=== PATIENT | female | born 1950 | race Caucasian/White ===

== ENCOUNTER 2017-12-24 04:53 | Inpatient (IN) | payer OTHER, MEDICARE ==
[2017-12-18 14:14] VITALS: BMI 45.0
--- NOTE | 2017-12-18 15:19 | PAT Medication Instructions ---
Service Date December 18, 2017. Current Home Medication List Aspirin (Aspirin Ec), 81 MG PO HS Cyanocobalamin (B12), 1 TAB PO QDL Fish Oil (Nemacolin-3), 1-2 CAP PO QDD Furosemide (Lasix), 20 MG PO QDL Gabapentin (Neurontin), 300 MG PO BID Wgkbcllqiig-Zbteztrjqlm-Yrq C- (Glucosamine Chondroitin), 1 CAP PO BID Levothyroxine Sodium (Levothyroxine Sodium), 1 TAB PO QAM Losartan Potassium (Cozaar), 100 MG PO QAM Metformin Hcl (Glucophage), 500 MG PO BID Multivitamin (Multivitamin), 1 TAB PO QDD Niacin (Niacin), 500 MG PO QDL Pediatric Multiple Vitamin W/ (Childrens Chewable Multiv), 1 TAB PO DAILY Rosuvastatin Calcium (Rosuvastatin Calcium), 0.5 TAB PO QDL Tramadol (Ultram), 50 MG PO Q8 PRN for Pain Medication Instructions For Your Scheduled Surgery - Hold the following medications starting today: Fish Oil (Nemacolin-3), 1-2 CAP PO QDD Knftdblmwwr-Hkevmorbbgc-Cgs C- (Glucosamine Chondroitin), 1 CAP PO BID - Hold the following medications the morning of surgery: Losartan Potassium (Cozaar), 100 MG PO QAM Metformin Hcl (Glucophage), 500 MG PO BID - Take the following medications the morning of surgery with a sip of water: Gabapentin (Neurontin), 300 MG PO BID Levothyroxine Sodium (Levothyroxine Sodium), 1 TAB PO QAM Tramadol (Ultram), 50 MG PO Q8 PRN for Pain (if needed, can be taken up to four hours before surgery) - Take the following medications as scheduled the afternoon/night before surgery : Aspirin (Aspirin Ec), 81 MG PO HS Cyanocobalamin (B12), 1 TAB PO QDL Furosemide (Lasix), 20 MG PO QDL Gabapentin (Neurontin), 300 MG PO BID Metformin Hcl (Glucophage), 500 MG PO BID Multivitamin (Multivitamin), 1 TAB PO QDD Niacin (Niacin), 500 MG PO QDL Pediatric Multiple Vitamin W/ (Childrens Chewable Multiv), 1 TAB PO DAILY Rosuvastatin Calcium (Rosuvastatin Calcium), 0.5 TAB PO QDL Tramadol (Ultram), 50 MG PO Q8 PRN for Pain (if needed) If you have any questions please call us at [phone] or [phone] or [phone]
[2017-12-18 15:34] LABS: BASO % 0.3 %; BASO ABS # 0.03 K/uL (0-0.2); EOS % 1.6 %; EOS ABS # 0.15 K/uL (0-0.5); HEMATOCRIT 37.1 % (37-47); HEMOGLOBIN 12.6 g/dL (12.0-16.0); IG# 0.03 K/uL (0.00-0.02); LYMPH % 39.7 %; LYMPH ABS # 3.63 K/uL (1.2-3.4); MEAN CORPUSCULAR HEMOGLOBIN 30.2 pg (25-34); MEAN PLATELET VOLUME 9.3 fL (7.4-10.4); MONO % 7.3 %; MONO ABS # 0.67 K/uL (0.11-0.59); NEUT % 50.8 %; NEUT ABS # 4.64 K/uL (1.4-6.5); PLATELET COUNT 241 K/uL (130-400); RED CELL DISTRIBUTION WIDTH CV 13.3 % (11.5-14.5); RED CELL DISTRIBUTION WIDTH SD 43.1 fL (36.4-46.3); WHITE BLOOD COUNT 9.15 K/uL (4.8-10.8)
[2017-12-18 15:46] LABS: PTT PATIENT 25.8 SECONDS (21.0-31.0)
[2017-12-18 15:54] LABS: ALBUMIN 3.6 gm/dl (3.4-5.0); CREATININE 0.78 mg/dl (0.60-1.20); POTASSIUM 3.6 mmol/L (3.5-5.1)
[2017-12-19 06:04] LABS: HEMOGLOBIN A1C 6.7 % (4.5-5.6)
--- NOTE | 2017-12-23 19:31 | HISTORY & PHYSICAL EXAMINATION ---
DATE OF ADMISSION: 12/24/2017 Admission History and Physical. CHIEF COMPLAINT: Chronic right knee pain. HISTORY OF PRESENT ILLNESS: This is a 67-year-old female patient of Dr. Greenwood'eva complaining of chronic right knee pain and instability, longstanding, now progressively getting worse. Patient has failed conservative treatment including intraarticular injections, anti-inflammatories and the use of a cane. Patient has increased pain with weightbearing activities and her pain does interfere with her activities of daily living. PAST MEDICAL HISTORY: Hypertension, hypercholesterolemia, sleep apnea with the use of CPAP, anxiety, carpal tunnel, diabetes mellitus, hypothyroidism, osteoarthritis, degenerative disc disease in her back, sciatica, acid reflux, obesity and partials orally. SOCIAL HISTORY: Nonsmoker, nondrinker. PAST SURGICAL HISTORY: Oral surgeries and tubal ligation. FAMILY HISTORY: Noncontributory. REVIEW OF SYSTEMS: Patient complains of chronic right knee pain and instability. Otherwise denies any shortness of breath, chest pain, nausea, vomiting or any other joint complaints. MEDICATIONS: Levothyroxine 88 mcg daily, losartan 100 mg daily, furosemide 20 mg 1 tablet b.i.d., metformin 500 mg 1 tablet b.i.d., gabapentin 300 mg 1 tablet 3 times daily, tramadol 50 mg every 6 hours as needed, multivitamin daily, glucosamine 500 mg daily, niacin 500 mg t.i.d. She takes B12 plus vitamin, aspirin 81 mg daily, Synthroid 75 mcg, Benicar 40 mg daily, Lasix 20 mg daily, multivitamin daily, Osteo Bi-Flex daily, Celebrex 200 mg daily. ALLERGIES: No known drug allergies. PHYSICAL EXAMINATION: GENERAL: Well-developed, well-nourished 67-year-old female in no acute distress. She is alert and oriented x3 and pleasant. HEENT: Normocephalic, atraumatic. Extraocular motions are intact. Pupils are equal and reactive to light. HEART: Regular rate and rhythm. No murmurs are appreciated. LUNGS: Clear. ABDOMEN: Soft, nontender, bowel sounds are present. EXTREMITIES: Right knee reveals negative 10-95 degrees of range of motion with a valgus deformity. Knee is stable. 4/5 strength. Neurologically and neurovascularly intact in her right lower extremity. DIAGNOSES: Right knee end-stage osteoarthritis, hypertension, hypercholesterolemia, sleep apnea with the use of CPAP, anxiety, carpal tunnel, diabetes mellitus, hypothyroidism, osteoarthritis, degenerative disc disease, sciatica, acid reflux, obesity and oral surgeries with the partial. PLAN: Patient was advised of her diagnoses. Indications, risks, benefits, postop course have all been reviewed. Patient wished to proceed with a right total knee arthroplasty. Necessary consent forms, preoperative testing and clearances will be obtained.
[2017-12-24] VITALS (10 sets, daily range): BP systolic 104–175; BP diastolic 60–84; PULSE 72–84; TEMP 36.2–37.3; O2SAT 91–98; Ht 172.7 cm; Wt 134.1 kg
[~2017-12-24] VITALS: Ht 172.7 cm; Wt 134.1 kg
[~2017-12-24 04:53] MED LIST: ASPI81TA28 PO; CYAN100073 PO; FURO-85 PO; GABA-113 PO; GLC/500 PO; GLUC1CAP35 PO; LEVO88TA3 PO; LOSA1TAB38 PO; MULT-506 PO; NIAC500T11 PO; OMEG10007 PO; PEDI-61 PO; ROSU20TA33 PO; TRAM-10 PO
[2017-12-24] MEDS ORDERED: ROPIVACAINE 5MG/ML 30 ML 150 MG, BUPIVACAINE 0.5% MPF INJ 30 ML, EpINEphrine HCL INJ 0.... INFIL SCH ×7 (06:00)
[2017-12-24] MEDS ORDERED: CEFAZOLIN 3000MG IV PUSH 22.5 ML IV SCH (06:00)
[2017-12-24] MEDS ORDERED: GABAPENTIN 300 MG CAP PO SCH (06:00)
[2017-12-24] MEDS ORDERED: CeleBREX 200 MG CAP PO SCH (06:00)
[2017-12-24] MEDS ORDERED: LACTATED RINGER'S 1000ML 1,000 ML IV SCH (06:00)
[2017-12-24] MEDS ORDERED: METOCLOPRAMIDE HCL 10 MG TAB PO SCH (06:00)
[2017-12-24] MEDS ORDERED: ACETAMINOPHEN 500 MG TAB PO SCH (06:00)
[2017-12-24] MEDS ORDERED: FAMOTIDINE 20 MG TAB PO SCH (06:00)
[2017-12-24] MEDS ORDERED: FENTANYL CITRATE INJ 50 MCG/1 ML 2 ML VIAL ONE (06:28)
[2017-12-24] MEDS ORDERED: MIDAZOLAM HCL 1 MG/ML 2ML VIAL ONE (06:28)
[2017-12-24] MEDS ORDERED: BUPIVACAINE 0.5 % 5 MG/1 ML PF 10ML VIAL ONE (06:37)
[2017-12-24] MEDS ORDERED: POVIDONE-IODINE OP SOLN 30 ML BTL ONE (06:41)
[2017-12-24] MEDS ORDERED: ORTHO JOINT ANESTHETIC ONE (06:41)
[2017-12-24] MEDS ORDERED: BACITRACIN 50000 UNIT VIAL ONE (06:41)
[2017-12-24] MEDS: TRANEXAMIC ACID INJ 1,000 MG x 2 Bags IV SCH ×4 (06:55→10:58)
--- NOTE | 2017-12-24 06:56 | History & Physical Bridge Note ---
H&P Re-Evaluation Bridge Note: I have examined the patient, reviewed the History & Physical and in the interval since the performance of the History & Physical I have noted the following changes of clinical significance: No changes noted
[2017-12-24] MEDS ORDERED: FENTANYL CITRATE INJ 50 MCG/1 ML 2 ML VIAL IV PRN (07:00)
[2017-12-24] MEDS ORDERED: ATROPINE SULFATE 0.1 MG/ML 5ML SYR IV PRN (07:00)
[2017-12-24] MEDS ORDERED: EpHEDrine SULFATE INJ 50 MG/ML AMP IV PRN (07:00)
[2017-12-24] MEDS ORDERED: HYDROmorphone INJ 1 MG/ML SYR IV PRN (07:00)
[2017-12-24] MEDS ORDERED: ONDANSETRON INJ 2 MG/ML 2 ML VIAL IV PRN ×2 (07:00→09:45)
[2017-12-24] MEDS ORDERED: LIDOCAINE HCL 2% 2 ML VIAL (20MG/ML) ONE (08:03)
[2017-12-24] MEDS ORDERED: ONDANSETRON INJ 2 MG/ML 2 ML VIAL ONE (08:03)
[2017-12-24] MEDS ORDERED: PROPOFOL IV EMULSION 10 MG/ML 20 ML VIAL ONE (08:03)
[2017-12-24] MEDS ORDERED: EpHEDrine SULFATE 50MG/5ML SYR ONE (08:11)
--- NOTE | 2017-12-24 09:01 | [facility] Post Operative Brief Note ---
Immediate Operative Summary Operative Date December 24, 2017. Pre-Operative Diagnosis Right Knee End-Stage Osteoarthritis,morbid obesity BMI 45 Post-Operative Diagnosis Same as preoperative Procedure(s) Performed Right Total Knee Arthroplasty, Cemented,increased difficulty morbid obesity,superficial wound vac application Surgeon Dr. Evelio Greenwood Manager Field Investigations Surgeon(s) Devon Michel PA-C Estimated Blood Loss 10ml Findings Consistent with Post-Op Diagnosis Specimens A.) Right Knee Bone and Tissue Drains 2 hemovac Anesthesia Type MAC Spinal Regional Complication(s) none Disposition Disposition: Recovery Room / PACU
[2017-12-24] MEDS ORDERED: METOCLOPRAMIDE HCL INJ 5 MG/ML 2 ML VIAL IV PRN (09:45)
[2017-12-24] MEDS ORDERED: CEFAZOLIN IV 2,000 MG in DEXTROSE 5% 50ML 50 ML IV SCH (09:45)
[2017-12-24] MEDS ORDERED: SOD PHOSPHATE/SOD BIPHOSPHATE ENEMA 132 ML BTL PR PRN (09:45)
[2017-12-24] MEDS ORDERED: ZOLPIDEM TARTRATE 5 MG TAB PO PRN (09:45)
[2017-12-24] MEDS ORDERED: TRAMADOL HCL 50 MG TAB PO PRN (09:45)
[2017-12-24] MEDS ORDERED: BISACODYL 10 MG SUPP PR PRN (09:45)
--- NOTE | 2017-12-24 09:55 | DIAGNOSTIC IMAGING REPORT ---
R KNEE 1 OR 2 VIEWS ROUTINE CLINICAL HISTORY: AP/LATERAL IN PACU RIGHT KNEE pain COMPARISON: None. DISCUSSION: Anatomic alignment posttotal right knee arthroplasty. Good contact between prosthetic and underlying bone. IMPRESSION: Anatomic alignment posttotal right knee arthroplasty. The above report was generated using voice recognition software. It may contain grammatical, syntax or spelling errors. Electronically signed by: Devon Garcia M.D. 12/24/2017 9:54 AM Dictated Date/Time: 12/24/2017 9:53 AM
--- NOTE | 2017-12-24 10:37 | Anesthesiology Progress Note ---
Anesthesia Post Op Note Date & Time December 24, 2017 at 10:36 Vital Signs Pain Intensity: 0 Vital Signs Past 12 Hours Date Time Temp Pulse Resp B/P (MAP) Pulse Ox O2 Delivery O2 Flow Rate FiO2 12/24/17 10:15 36.4 65 19 107/54 96 Nasal Cannula 2 12/24/17 10:05 62 11 110/57 95 Nasal Cannula 2 12/24/17 09:55 81 21 119/63 100 Oxymask 10 12/24/17 09:45 63 16 110/59 100 Oxymask 10 12/24/17 09:35 36.6 73 16 114/62 96 Oxymask 10 12/24/17 05:35 36.7 83 20 175/78 96 Room Air Notes Mental Status: alert / awake / arousable, participated in evaluation Pt Amnestic to Procedure: Yes Nausea / Vomiting: adequately controlled Pain: adequately controlled Airway Patency, RR, SpO2: stable & adequate BP & HR: stable & adequate Hydration State: stable & adequate Neuraxial Anesthesia: was administered, sensory block is resolving Anesthetic Complications: no major complications apparent The patient is doing well in recovery with no complaints. She will be transferred to the floor on continuous pulse oximetry due to her history of LORIE.
[2017-12-24] MEDS ORDERED: GLUCOSE 10 TABS/TUBE PO PRN (11:30)
[2017-12-24] MEDS ORDERED: GLUCAGON FOR INJ 1 MG VIAL IM PRN (11:30)
[2017-12-24] MEDS ORDERED: DEXTROSE 50% 50 ML SYR IV PRN (11:30)
[2017-12-24] MEDS ORDERED: GLUCOSE 40% GEL 15 GM TUBE PO PRN (11:30)
[2017-12-24] MEDS ORDERED: CARBOHYDRATES FOR HYPOGLYCEMIA PO PRN (11:30)
[2017-12-24] MEDS: SODIUM CHLORIDE 0.9% 1000ML 1,000 ML IV SCH ×2 (11:48→20:45)
[2017-12-24 12:02] LABS: HEMATOCRIT 33.2 % (37-47); HEMOGLOBIN 11.1 g/dL (12.0-16.0); MEAN CELL VOLUME 87.8 fL (80-100); MEAN CORPUSCULAR HEMOGLOBIN 29.4 pg (25-34); MEAN PLATELET VOLUME 8.5 fL (7.4-10.4); PLATELET COUNT 184 K/uL (130-400); RED CELL DISTRIBUTION WIDTH CV 13.3 % (11.5-14.5); RED CELL DISTRIBUTION WIDTH SD 42.8 fL (36.4-46.3); WHITE BLOOD COUNT 7.07 K/uL (4.8-10.8)
[2017-12-24 12:20] LABS: MEAN CORPUSCULAR HGB CONC 33.4 g/dl (32-36)
[2017-12-24 12:25] LABS: TOTAL PROTEIN 6.2 gm/dl (6.4-8.2)
[2017-12-24] MEDS ORDERED: NIACIN 500 MG TAB IMMEDIATE RELEASE PO SCH (12:30)
[2017-12-24] MEDS: OXYCODONE HCL IR 5 MG TAB (IMMEDIATE RELEASE) PO PRN (13:49)
[2017-12-24] MEDS: ACETAMINOPHEN 500 MG TAB PO SCH ×2 (14:12→20:00)
[2017-12-24] MEDS: ROSUVASTATIN CALCIUM 20 MG TAB PO SCH (14:12)
[2017-12-24] MEDS: FUROSEMIDE 20 MG TAB PO SCH (14:12)
[2017-12-24] MEDS: CYANOCOBALAMIN 500 MCG TAB (VIT B-12) PO SCH (14:12)
[2017-12-24] MEDS: CEFAZOLIN IV 2,000 MG in SYRINGE 0 ML IV SCH ×2 (14:17→22:31)
[2017-12-24] MEDS: INSULIN ASPART 100 UNITS/ML 3 ML PEN SC SCH ×3 (14:29→20:51)
--- NOTE | 2017-12-24 14:33 | Medical Consult ---
Consultation Date of Consultation: December 24, 2017. Attending Physician: Evelio Greenwood M.D. Reason for Consultation: Post-op medical mgmt History of Present Illness This is a 67yo F with a PMH of R knee DJD, HTN, HLD, DM II and LORIE (on cpap) who is POD #0 s/p R TKA by Dr. Greenwood. Patient is doing well post-operatively. States that knee pain is a 5/10 but that she just received pain medication 10 minutes ago. Denies any fever, chills, lightheadedness, headache, visual changes , sore throat, CP, SOB, abdominal pain, nausea, vomiting, dysuria or LE swelling. Patient has a history of prediabetes but was just formally diagnosed with DM II. Recent hgb a1c was 6.7 on December 18. PCP is Dr. Sma Arroyo. Past Medical/Surgical History Medical Problems: (1) Diabetes mellitus, type II Status: Chronic (2) HLD (hyperlipidemia) Status: Chronic (3) HTN (hypertension) Status: Chronic (4) LORIE on CPAP Status: Chronic (5) Right knee DJD Status: Chronic (6) RLS (restless legs syndrome) Status: Chronic Surgical Problems: (1) H/O dilation and curettage Status: Resolved (2) H/O oral surgery Status: Resolved Family History FH: Alzheimers disease FH: lung cancer Hypertension Social History Smoking Status: Never Smoker Alcohol Use: none Marital Status: Housing Status: lives with significant other Occupation Status: retired Allergies Coded Allergies: Meloxicam (Verified Allergy, Unknown, SEE NOTES, 12/24/17) PT REPORTS ULCER AND INFLAMMATION FOUND ON ROUTINE COLONOSCOPY MAY 2017 - WAS TOLD DUE TO ARTHRITIC MEDICATION, MELOXICAM AND NSAIDS. NSAIDs (Verified Allergy, Unknown, SEE NOTES BELOW, 12/24/17) ULCER AND INFLAMMATION FOUND ON ROUTINE COLONOSCOPY MAY 2017 - WAS TOLD DUE TO ARTHRITIC MEDICATION, MELOXICAM AND USE OF NSAID , ALEVE. PATIENT WAS TOLD NOT USE NSAIDS IN THE FUTURE BY DR THAT DID COLONOSCOPY. Naproxen (Verified Allergy, Unknown, SEE NOTES BELOW, 12/24/17) ULCER AND INFLAMMATION FOUND ON ROUTINE COLONOSCOPY MAY 2017. PATIENT WAS TOLD DUE TO USE OF ARTHRITIC MEDICATION, MELOSCIAM AND USE OF NSAID, ALEVE. PT WAS INSTRUCTED TO NOT USE NSAIDS IN THE FUTURE BY DR THAT DID COLONOSCOPY. Unclassified Drugs (Verified Allergy, Unknown, SEASONAL ALLERGIES - STUFFY NOSE, 12/24/17) Home Medications Reported Home Medications Medications Dose Route/Sig Max Daily Dose Days Date Category Dose Instructions Childrens Chewable Multiv (Pediatric Multiple Vitamin W/) 1 Chw Chw 1 Tab PO DAILY 12/18/17 Reported PT MED LIST READS TABLET WITH IRON Aspirin Ec (Aspirin) 81 Mg Tab 81 Mg PO HS 12/18/17 Reported B12 (Cyanocobalamin) 1,000 Mcg Tab 1 Tab PO QDL 12/18/17 Reported Coy-3 (Fish Oil) 1 Ea Cap 1-2 Cap PO QDD 12/18/17 Reported Glucosamine Chondroitin (Gvoctenvxlo-Uakzzmhmhwz-Ble C-) 1 Cap Cap 1 Cap PO BID 12/18/17 Reported PT MED LIST READS: 91169 FOR GLUCOSAMINE AND 800 FOR CHONDROITIN Multivitamin (Multivitamins) Tab 1 Tab PO QDD 12/18/17 Reported Niacin 500 Mg Tab 500 Mg PO QDL 12/18/17 Reported MED LIST READS " FLUSH FREE" Ultram (Tramadol HCl) 50 Mg Tab 50 Mg PO Q8 PRN 12/18/17 Reported Neurontin (Gabapentin) 300 Mg Cap 300 Mg PO BID 12/18/17 Reported Rosuvastatin Calcium 20 Mg Tab 0.5 Tab PO QDL 12/18/17 Reported Lasix (Furosemide) 20 Mg Tab 20 Mg PO QDL 12/18/17 Reported Cozaar (Losartan Potassium) 100 Mg Tab 100 Mg PO QAM 12/18/17 Reported Glucophage (Metformin Hcl) 500 Mg Tab 500 Mg PO BID 12/18/17 Reported Levothyroxine Sodium 88 Mcg Tab 1 Tab PO QAM 90 12/18/17 Reported PT MED LIST DOSE READS .088 MG Current Inpatient Medications Current Inpatient Medications Medications (Trade) Dose Ordered Sig/Jean Route Start Time Stop Time Status Last Admin Dose Admin Cefazolin Sodium 22.5 ml @ 4.5 mls/min PREOP IV 12/24/17 06:00 12/24/17 18:00 12/24/17 07:19 4.5 MLS/MIN Acetaminophen (Tylenol Tab) 1,000 mg PREOP PO 12/24/17 06:00 12/24/17 18:00 12/24/17 05:51 1,000 MG Celecoxib (CeleBREX CAP) 200 mg PREOP PO 12/24/17 06:00 12/24/17 18:00 Famotidine (Pepcid Tab) 20 mg PREOP PO 12/24/17 06:00 12/24/17 18:00 12/24/17 05:50 20 MG Gabapentin (Neurontin Cap) 300 mg PREOP PO 12/24/17 06:00 12/24/17 18:00 Metoclopramide HCl (Reglan Tab) 10 mg PREOP PO 12/24/17 06:00 12/24/17 18:00 12/24/17 05:50 10 MG Lactated Ringer's 1,000 ml @ 15 mls/hr Q24H IV 12/24/17 06:00 12/25/17 05:59 12/24/17 05:49 15 MLS/HR Furosemide (Lasix Tab) 20 mg QDL PO 12/24/17 11:00 01/23/18 10:59 Gabapentin (Neurontin Cap) 300 mg BID PO 12/24/17 21:00 01/23/18 20:59 Levothyroxine Sodium (Synthroid Tab) 88 mcg DAILYBB PO 12/25/17 06:00 01/24/18 05:59 Losartan Potassium (coZAAR TAB) 100 mg QAM PO 12/25/17 09:00 01/24/18 08:59 Multivitamins (Multivitamin Tab) 1 tab QDD PO 12/24/17 17:45 01/23/18 17:59 Rosuvastatin Calcium (Crestor Tab) 10 mg QDL PO 12/24/17 11:00 01/23/18 10:59 Cyanocobalamin (Vitamin B-12 Tab) 1,000 mcg QDL PO 12/24/17 13:00 01/23/18 12:59 Sodium Chloride 1,000 ml @ 100 mls/hr Q10H IV 12/24/17 11:00 12/25/17 10:59 12/24/17 11:48 100 MLS/HR Oxycodone HCl (Roxicodone Immediate Rel Tab) 1 TABLET FOR PAIN RATING... Q4H PRN PO 12/24/17 09:45 01/07/18 09:44 12/24/17 13:49 10 MG Morphine Sulfate (MoRPHine SULFATE INJ) as needed Q2H PRN IV 12/24/17 09:45 01/07/18 09:44 Acetaminophen (Tylenol Tab) 1,000 mg Q8H PO 12/24/17 12:00 01/23/18 11:59 Bisacodyl (Dulcolax Supp) 10 mg DAILY PRN IA 12/24/17 09:45 01/23/18 09:44 Sodium Biphosphate/ Sodium Phosphate (Fleet Enema) 132 ml DAILY PRN IA 12/24/17 09:45 01/23/18 09:44 Docusate Sodium (coLACE CAP) 100 mg BID PO 12/24/17 21:00 01/23/18 20:59 Diphenhydramine HCl (Benadryl Cap) 25 mg Q8H PRN PO 12/24/17 09:45 01/23/18 09:44 Zolpidem Tartrate (Ambien Tab) 5 mg HSZ PRN PO 12/24/17 09:45 01/23/18 09:44 Multivitamins (Multivitamin Tab) 1 tab QAM PO 12/25/17 09:00 01/24/18 08:59 Ondansetron HCl (Zofran Inj) 4 mg Q6H PRN IV 12/24/17 09:45 01/23/18 09:44 Metoclopramide HCl (Reglan Inj) 10 mg Q6H PRN IV 12/24/17 09:45 01/23/18 09:44 Pantoprazole Sodium (Protonix Tab) 40 mg QAM PO 12/25/17 09:00 01/24/18 08:59 Tramadol HCl (Ultram Tab) 1 tablet for pain rating... Q4H PRN PO 12/24/17 09:45 01/23/18 09:44 Rivaroxaban (Xarelto Tab) 10 mg Q24H PO 12/25/17 09:00 01/06/18 08:59 Insulin Aspart (novoLOG ASPART) SLIDING SCALE G... ACHS SC 12/24/17 11:00 01/23/18 10:59 Cefazolin Sodium 2000 mg/Syringe 15 ml @ 3.75 mls/ min Q8H IV 12/24/17 15:00 12/24/17 23:03 Glucose (Glucose 40% Gel) 15-30 GRAMS 15 GRAMS... UD PRN PO 5/9/18 11:30 01/23/18 11:29 Glucose (Glucose Chew Tab) 4-8 Tablets 4 Tabl... UD PRN PO 12/24/17 11:30 01/23/18 11:29 Dextrose (Dextrose 50% 50ML Syringe) 25-50ML 25ML FOR ... UD PRN IV 12/24/17 11:30 01/23/18 11:29 Glucagon (Glucagon Inj) 1 mg UD PRN IM 12/24/17 11:30 01/23/18 11:29 Carbohydrates (Carbohydrates For Hypoglycemia) 15-30 GRAMS 15 grams if BSG 54-69... UD PRN PO 12/24/17 11:30 01/23/18 11:29 Niacin (Niacin Tab) 500 mg QDL PO 12/25/17 12:30 01/24/18 12:29 Review of Systems Constitutional: No fever, No chills, No weakness, No fatigue Eyes: No worsening of vision, No eye pain ENT: No hearing loss, No nasal symptoms, No sore throat Respiratory: No cough, No wheezing, No shortness of breath, No dyspnea on exertion Cardiovascular: No chest pain, No edema, No palpitations Abdomen: No pain, No nausea, No vomiting, No diarrhea, No constipation Genitourinary - Female: No dysuria, No urinary frequency, No urinary urgency, No urinary incontinence Neurologic: No weakness, No numbness/tingling Hematologic / Lymphatic: No abnormal bleeding/bruising Integumentary: No rash, No new/changing skin lesions Physical Exam Date Time Temp Pulse Resp B/P (MAP) Pulse Ox O2 Delivery O2 Flow Rate FiO2 12/24/17 12:41 84 18 123/73 (90) 96 2.0 12/24/17 11:45 36.4 72 16 112/67 (82) 98 2.0 12/24/17 11:15 36.6 80 18 104/60 (75) 97 2.0 12/24/17 10:45 Nasal Cannula 2.0 12/24/17 10:45 36.2 80 16 112/65 (81) 96 Nasal Cannula 2.0 12/24/17 10:45 96 Nasal Cannula 2.0 12/24/17 10:25 70 19 107/63 96 Nasal Cannula 2 12/24/17 10:15 36.4 65 19 107/54 96 Nasal Cannula 2 12/24/17 10:05 62 11 110/57 95 Nasal Cannula 2 12/24/17 09:55 81 21 119/63 100 Oxymask 10 12/24/17 09:45 63 16 110/59 100 Oxymask 10 12/24/17 09:35 36.6 73 16 114/62 96 Oxymask 10 12/24/17 05:35 36.7 83 20 175/78 96 Room Air General Appearance: WD/WN, no apparent distress, + obese Head: normocephalic, atraumatic Eyes: normal inspection, PERRL, sclerae normal ENT: normal ENT inspection, hearing grossly normal, pharynx normal (moist mucous membranes ) Neck: supple, thyroid normal, trachea midline Respiratory/Chest: chest non-tender, lungs clear, normal breath sounds, no respiratory distress, no accessory muscle use, + decreased breath sounds (2/2 habitus ) Cardiovascular: regular rate, rhythm, no murmur, normal peripheral pulses Abdomen/GI: normal bowel sounds, non tender, soft, no organomegaly Back: normal inspection Extremities/Musculoskelatal: normal inspection, no calf tenderness, normal capillary refill, no pedal edema, + pertinent finding (R knee with surgical dressing in place. Clean, dry intact. Drain visualized. + SCDs ) Neurologic/Psych: no motor/sensory deficits, alert, normal mood/affect, oriented x 3 Skin: normal color, warm/dry, no rash Laboratory Results Last 24 Hours Test 12/24/17 05:15 12/24/17 09:41 12/24/17 11:51 Bedside Glucose 120 mg/dl 103 mg/dl White Blood Count 7.07 K/uL Red Blood Count 3.78 M/uL Hemoglobin 11.1 g/dL Hematocrit 33.2 % Mean Corpuscular Volume 87.8 fL Mean Corpuscular Hemoglobin 29.4 pg Mean Corpuscular Hemoglobin Concent 33.4 g/dl RDW Standard Deviation 42.8 fL RDW Coefficient of Variation 13.3 % Platelet Count 184 K/uL Mean Platelet Volume 8.5 fL Total Bilirubin 0.4 mg/dl Direct Bilirubin 0.2 mg/dl Aspartate Amino Transf (AST/SGOT) 19 U/L Alanine Aminotransferase (ALT/SGPT) 21 U/L Alkaline Phosphatase 55 U/L Total Protein 6.2 gm/dl Albumin 3.0 gm/dl Assessment & Plan This is a 67yo F with a PMH of R knee DJD, HTN, HLD, DM II and LORIE (on cpap) who is POD #0 s/p R TKA by Dr. Greenwood. R knee DJD s/p R TKA: -Performed by Dr. Greenwood -Doing well post-operatively -Per ortho for pain control, wound care, anticoagulation and activities -Monitor H&H, continue incentive spirometry, PT/OT when appropriate -Planning for discharge on Xarelto due to increased post-op risk for DVT DM II: recently diagnosed -A1c of 6.7 on December 18 -Hold home metformin -SSI while in-patient -BSG check AC HS HTN: -Losartan and lasix held pre-operatively -Normotensive now -Will give losartan dose if indicated -Otherwise, plan to resume daily medications tomorrow HLD: -Cont statin LORIE: -May use own cpap PCP: Sam Arroyo Dispo: Per ortho Patient seen in collaboration with Dr. Corral. Please see addendum. Thank you for this consultation. We will follow the patient with you during their hospital stay. You can reach a member of the [facility] Hospitalist Team 10/03 via pager @ . ATTENDING ADDENDUM: Patient seen and examined care coordinated with Xochitl Lucero PA-C This is a 67-year-old female underwent right knee surgery secondary to advanced degenerative joint disease Recovering well post Denies of any chest pain, no shortness of breath, no fever or chills Blood pressure remained stable Type 2 diabetes Metformin will be kept on hold Utilize insulin sliding scale while in hospital Hemoglobin A1c in a.m. Please refer to further documentation by Xochitl Lucero PA-C for discussion of other chronic issues Christal Corral MD
[2017-12-24] MEDS: MoRPHine SULFATE 4 MG/ML 1 ML CARP\\VIAL IV PRN ×2 (17:13→20:52)
--- NOTE | 2017-12-24 17:26 | [facility] Operative Report ---
Operative Report Operative Date December 24, 2017. Pre-Operative Diagnosis Right Knee End-Stage Osteoarthritis,morbid obesity BMI 45 Post-Operative Diagnosis Same Procedure(s) Performed Right total knee arthroplasty, superficial wound VAC application, increased difficulty due to morbid obesity BMI [address] Evelio Greenwood [employer] Manager Surgeon(s) Devon Michel PA-C Estimated Blood Loss 10ml Findings Morbid obesity large varicose veins, medial compartment OA grade 4 grade 3 patellofemoral DJD Specimens A.) Right Knee Bone and Tissue Drains 2 hemovac Anesthesia Spinal,adductor nerve block, orthomix, sedation Complication(s) None Disposition Recovery Room / PACU Indications 67-year-old female with severe bilateral knee DJD [id number] with right knee varus patellofemoral medial compartment DJD. Description of Procedure Patient taken to the operating room the size under spinal adductor nerve block sedation anesthesia. Patient was placed supine on the operating table. A pneumatic tourniquet was placed about the right obese upper thigh. The right lower extremity was prepped and draped in sterile fashion. Knee exam demonstrated very obese upper thigh and knee area. She had a flexion contracture and flexion to 120 varus knee. The leg was elevated exsanguinated with an Esmarch bandage and pneumatic tourniquet was raised to 350 millimeters of mercury. Skin incised sharply in longitudinal fashion. Subcutaneous flaps elevated. Incision was made through the medial retinaculum extending up in the mid third of the quadriceps tendon and down to the medial tibial tubercle. Intra-articular findings demonstrated end-stage degenerative arthritis medial compartment more anteromedial OA grade 4 with grade 3 patellofemoral DJD tricompartmental osteophytes and large varicose veins. She had obese leg with some distal edema. The [employer] triathlon total knee arthroplasty system was used. To expose the knee the infrapatellar fat pad was resected. The meniscal remnants and cruciate ligaments were resected. The anterior fat pad over the femur in the area of the anterior flange of the femoral component was resected. Lateral synovial bands release. The femur was exposed. An intramedullary drill hole was made into the canal. A guidewire was placed. Distal femoral cutting guide was adjusted to resect a 5 degree valgus cut with 10 millimeters distal femur resected. The knee was extended and a subperiosteal peel lateral release was performed around the patella. Patella width was measured and width was reproduced using a freehand cut technique and a 36 x 10 dome patella component. The 3 drill holes were made and the excess lateral facet was beveled off to prevent any impingement. Attention was taken back to the femur which was exposed with retractors and the femoral sizing guide was pinned in position. The drill holes were placed in 3 of external rotation to match epicondylar axis. Femur sized for a 6 component. The 4-in-1 cutting block was placed and then the anterior posterior and chamfer cuts are made. The tibia was then subluxed. The external tibial cutting guide was just to make a perpendicular cut to the long axis of the tibia below the most deficient bone loss side. A lamina smash fixer was used and the flexion extension gaps were balanced. All posterior osteophytes removed. All meniscal remnants were resected. The tibia exposed and the trial tibial component size 5 was externally rotated in line with the tibial tubercle and pinned in position. The punch for stem was used. The notch cutting device was centered appropriately and the femoral notch cut was made. The femoral trial was inserted. Trial tibial inserts were placed and size 11 mm posterior stabilized gave balanced ligaments through flexion and extension. Patella tracking was assessed. The patella tracked centrally. The trial components were then removed and the orthomix anesthetic cocktail was injected per protocol. The knee was then copiously irrigated with pulsatile lavage antibiotic solution. Final components were then cemented with Simplex cement. Final components were [employer] triathlon 6 right femoral posterior stabilized component 5 primary tibial baseplate 5 mm posterior stabilized X3 poly-tibial insert and the S 36 x 10 mm X3 poly-dome patella. While the cement cured the Betadine soak was used per protocol. After cement cured further pulsatile lavage irrigation performed and 2 Hemovac drains were brought out laterally. The quadriceps tendon and medial retinaculum were closed with figure of 8 #1 Vicryl sutures. The knee was taken through full range of motion and the repair was secure. The subcutaneous tisssues were closed with large #2 Vicryl sutures to close the space followed by 2-0 Vicryl sutures. Skin was closed with roman. A superficial wound VAC was applied. Patient procedure well. There was increased difficulty throughout the procedure due to increased size of the leg due to obesity causing increased difficulty in multiple aspects of the procedure. Devon ZAMAN was my physician social human services assistants who assisted in patient positioning prepping and draping,leg positioning ,soft tissue retraction and instrument management and participated in the closing and will participate in postoperative care of the patient. The patient tolerated the procedure well. I attest to the content of the Intraoperative Record and any orders documented therein. Any exceptions are noted below.
[2017-12-24] MEDS: MULTIVITAMIN TAB PO SCH (17:57)
[2017-12-24] MEDS: DOCUSATE SODIUM 100 MG CAP PO SCH (20:46)
[2017-12-24] MEDS: GABAPENTIN 300 MG CAP PO SCH (20:46)
[2017-12-25 02:45] VITALS: BP 133/79; PULSE 97; TEMP 37.2; O2SAT 91
[2017-12-25] MEDS: LEVOTHYROXINE 88 MCG TAB PO SCH (05:01)
[2017-12-25] MEDS: ACETAMINOPHEN 500 MG TAB PO SCH ×3 (05:01→20:58)
[2017-12-25] MEDS: MoRPHine SULFATE 4 MG/ML 1 ML CARP\\VIAL IV PRN ×2 (05:02→09:35)
[2017-12-25] MEDS: SODIUM CHLORIDE 0.9% 1000ML 1,000 ML IV SCH (06:39)
[2017-12-25] MEDS: OXYCODONE HCL IR 5 MG TAB (IMMEDIATE RELEASE) PO PRN ×4 (07:24→23:48)
[2017-12-25 07:29] VITALS: BP 128/72; PULSE 82; TEMP 36.9; O2SAT 91
[2017-12-25] MEDS: MULTIVITAMIN TAB PO SCH ×2 (08:39→18:04)
[2017-12-25] MEDS: DOCUSATE SODIUM 100 MG CAP PO SCH ×2 (08:39→20:58)
[2017-12-25] MEDS: LOSARTAN POTASSIUM 50 MG TAB PO SCH (08:39)
[2017-12-25] MEDS: PANTOprazole SOD 40 MG TAB PO SCH (08:40)
[2017-12-25] MEDS: GABAPENTIN 300 MG CAP PO SCH ×2 (08:40→20:58)
[2017-12-25] MEDS: RIVAROXABAN 10 MG TAB PO SCH (08:41)
[2017-12-25] MEDS: INSULIN ASPART 100 UNITS/ML 3 ML PEN SC SCH ×4 (08:43→20:59)
[2017-12-25 08:58] LABS: HEMATOCRIT 34.8 % (37-47); HEMOGLOBIN 11.4 g/dL (12.0-16.0); MEAN CELL VOLUME 89.2 fL (80-100); MEAN CORPUSCULAR HEMOGLOBIN 29.2 pg (25-34); MEAN CORPUSCULAR HGB CONC 32.8 g/dl (32-36); MEAN PLATELET VOLUME 9.4 fL (7.4-10.4); PLATELET COUNT 229 K/uL (130-400); RED CELL DISTRIBUTION WIDTH CV 13.3 % (11.5-14.5); RED CELL DISTRIBUTION WIDTH SD 43.7 fL (36.4-46.3); WHITE BLOOD COUNT 12.68 K/uL (4.8-10.8)
--- NOTE | 2017-12-25 09:22 | Orthopedic Progress Note ---
Orthopedic Progress Note Date of Service December 25, 2017. Subjective Post OP Day: 1 Reports: complaints (KNEE PAIN. JUST HAD PAIN MEDS AROUND 0730 WITH MINIMAL RELIEF.), Denies: chest pain, SOB, nausea / vomiting, light headedness, calf pain Objective calves soft nontender, N/V intact, capillary refill less than 2 sec., dressing C /D/I (PREVENA), incision C/D/I, A&O x3, toes mobile, hemovac drainage (185/125 cc per shift) Date Time Temp Pulse Resp B/P (MAP) Pulse Ox O2 Delivery O2 Flow Rate FiO2 12/25/17 07:29 36.9 82 18 128/72 (90) 91 Room Air 12/25/17 02:45 37.2 97 16 133/79 (97) 91 Room Air 12/24/17 23:31 CPAP 12/24/17 23:05 37.3 80 18 107/65 (79) 91 Room Air High Flow Oxygen 12/24/17 19:21 36.8 82 16 109/61 (77) 92 Room Air 12/24/17 15:30 97 Room Air 12/24/17 15:02 36.6 75 18 109/65 (80) 97 Nasal Cannula 2.0 12/24/17 13:45 75 18 152/84 (106) 97 2.0 12/24/17 12:41 84 18 123/73 (90) 96 2.0 12/24/17 11:45 36.4 72 16 112/67 (82) 98 2.0 12/24/17 11:15 36.6 80 18 104/60 (75) 97 2.0 12/24/17 10:45 Nasal Cannula 2.0 12/24/17 10:45 36.2 80 16 112/65 (81) 96 Nasal Cannula 2.0 12/24/17 10:45 96 Nasal Cannula 2.0 12/24/17 10:25 70 19 107/63 96 Nasal Cannula 2 12/24/17 10:15 36.4 65 19 107/54 96 Nasal Cannula 2 12/24/17 10:05 62 11 110/57 95 Nasal Cannula 2 12/24/17 09:55 81 21 119/63 100 Oxymask 10 12/24/17 09:45 63 16 110/59 100 Oxymask 10 12/24/17 09:35 36.6 73 16 114/62 96 Oxymask 10 Laboratory Results 24 Hours: Test 12/24/17 11:51 12/25/17 08:04 Hematocrit 33.2 % 34.8 % Hemoglobin 11.1 g/dL 11.4 g/dL Assessment & Plan Assessment: POD#1 SP RIGHT TKA Plan: PT/OT DVT PROPH- XARELTO PAIN MANAGEMENT- SONA, TYLENOL. CANNOT TAKE NSAIDS. TRAMADOL ORDERED BUT SHE HASN'T HAD ANY TODAY DC PLANNING- DC HOME WITH HOME PT FRIDAY, [employer].
[2017-12-25 09:33] LABS: CALCIUM 8.1 mg/dl (8.5-10.1); CREATININE 0.84 mg/dl (0.60-1.20); POTASSIUM 3.9 mmol/L (3.5-5.1)
[2017-12-25 11:13] VITALS: BP 119/69; PULSE 84; TEMP 36.8; O2SAT 96
[2017-12-25] MEDS ORDERED: NIACIN 500 MG TAB IMMEDIATE RELEASE PO SCH (12:30)
[2017-12-25] MEDS: FUROSEMIDE 20 MG TAB PO SCH (13:47)
[2017-12-25] MEDS: CYANOCOBALAMIN 500 MCG TAB (VIT B-12) PO SCH (13:48)
[2017-12-25] MEDS: ROSUVASTATIN CALCIUM 20 MG TAB PO SCH (14:00)
[2017-12-25 15:13] VITALS: BP 127/70; PULSE 86; TEMP 37.2; O2SAT 91
[2017-12-25 15:30] VITALS: O2SAT 91
--- NOTE | 2017-12-25 16:34 | Progress Note ---
Internal Med Progress Note Date of Service: December 25, 2017. Provider Documentation: SUBJECTIVE: Seen and examined at bedside Complains of RLE pain at surgical site Denies chest pain, SOB, dizziness, nausea, abd pain No other complaints No BM yet OBJECTIVE: Vital Signs-as noted below Physical Exam: General Appearance:Obese, No apparent distress Head: normocephalic, Atraumatic Eyes: normal inspection, EOMI, PERRL Neck: supple, Trachea midline Respiratory/Chest: Normal breath sounds, CTA Cardiovascular: S1, S2, No murmur Abdomen/GI:Soft, Non tender, Bowel sounds present Extremities/Musculoskelatal:normal inspection, RLE in Surgical bandage, +drain Neurologic/Psych:AAOX3, grossly no focal neurological deficits Skin: normal color, warm Lab data as noted below. ASSESSMENT & PLAN: Patient is a 67 yr female with a PMH of R knee DJD, HTN, HLD, DM II and LORIE (on cpap) presented for elective R TKA by Dr. Greenwood. S/P R TKA: POD # 1 Pain control, wound care , PT/OT per Ortho On Xarelto for anticoagulation continue bowel regimen to prevent constipation Hb stable DM II: Recently diagnosed A1c of 6.7 Hold oral agents Continue ISS monitor BGs HTN: Stable Continue current medications monitor HLD: Continue statin LORIE: CPAP QHS Code Status: Full Code DVT Px: On Xarelto Disposition Per ortho Vital Signs: Date Time Temp Pulse Resp B/P (MAP) Pulse Ox O2 Delivery O2 Flow Rate FiO2 12/25/17 15:30 91 Room Air 12/25/17 15:13 37.2 86 18 127/70 (89) 91 Room Air 12/25/17 11:13 36.8 84 18 119/69 (86) 96 Room Air 12/25/17 07:29 36.9 82 18 128/72 (90) 91 Room Air 12/25/17 07:24 Room Air 12/25/17 02:45 37.2 97 16 133/79 (97) 91 Room Air 12/24/17 23:31 CPAP 12/24/17 23:05 37.3 80 18 107/65 (79) 91 Room Air High Flow Oxygen 12/24/17 19:21 36.8 82 16 109/61 (77) 92 Room Air Lab Results: Results Past 24 Hours Test 12/24/17 17:15 12/24/17 20:33 12/25/17 08:04 12/25/17 08:10 Range/Units Bedside Glucose 110 144 135 70-90 mg/dl White Blood Count 12.68 4.8-10.8 K/uL Red Blood Count 3.90 4.2-5.4 M/uL Hemoglobin 11.4 12.0-16.0 g/dL Hematocrit 34.8 37-47 % Mean Corpuscular Volume 89.2 80-100 fL Mean Corpuscular Hemoglobin 29.2 25-34 pg Mean Corpuscular Hemoglobin Concent 32.8 32-36 g/dl RDW Standard Deviation 43.7 36.4-46.3 fL RDW Coefficient of Variation 13.3 11.5-14.5 % Platelet Count 229 130-400 K/uL Mean Platelet Volume 9.4 7.4-10.4 fL Sodium Level 136 136-145 mmol/L Potassium Level 3.9 3.5-5.1 mmol/L Chloride Level 104 98-107 mmol/L Carbon Dioxide Level 25 21-32 mmol/L Anion Gap 7.0 3-11 mmol/L Blood Urea Nitrogen 8 7-18 mg/dl Creatinine 0.84 0.60-1.20 mg/dl Est Creatinine Clear Calc Drug Dose 94.4 ml/min Estimated GFR () 83.4 Estimated GFR (Non- 71.9 BUN/Creatinine Ratio 9.5 10-20 Random Glucose 135 70-99 mg/dl Calcium Level 8.1 8.5-10.1 mg/dl
[2017-12-25 23:00] VITALS: BP 124/69; PULSE 87; TEMP 37.1; O2SAT 94
[2017-12-26] MEDS: ACETAMINOPHEN 500 MG TAB PO SCH (05:50)
[2017-12-26] MEDS: LEVOTHYROXINE 88 MCG TAB PO SCH (05:50)
[2017-12-26] MEDS: OXYCODONE HCL IR 5 MG TAB (IMMEDIATE RELEASE) PO PRN ×2 (05:51→09:50)
[2017-12-26 07:15] VITALS: BP 109/65; PULSE 73; TEMP 37.3; O2SAT 93
[2017-12-26 07:35] LABS: HEMATOCRIT 28.2 % (37-47); HEMOGLOBIN 9.4 g/dL (12.0-16.0); MEAN CELL VOLUME 89.5 fL (80-100); MEAN CORPUSCULAR HEMOGLOBIN 29.8 pg (25-34); MEAN CORPUSCULAR HGB CONC 33.3 g/dl (32-36); PLATELET COUNT 174 K/uL (130-400); RED CELL DISTRIBUTION WIDTH CV 13.6 % (11.5-14.5); RED CELL DISTRIBUTION WIDTH SD 44.9 fL (36.4-46.3); WHITE BLOOD COUNT 9.82 K/uL (4.8-10.8)
[2017-12-26 07:58] LABS: CALCIUM 8.2 mg/dl (8.5-10.1); CREATININE 0.67 mg/dl (0.60-1.20); POTASSIUM 3.6 mmol/L (3.5-5.1)
[2017-12-26] MEDS: PANTOprazole SOD 40 MG TAB PO SCH (08:14)
[2017-12-26] MEDS: GABAPENTIN 300 MG CAP PO SCH (08:15)
[2017-12-26] MEDS: RIVAROXABAN 10 MG TAB PO SCH (08:15)
[2017-12-26] MEDS: DOCUSATE SODIUM 100 MG CAP PO SCH (08:15)
[2017-12-26] MEDS: LOSARTAN POTASSIUM 50 MG TAB PO SCH (08:16)
[2017-12-26] MEDS: MULTIVITAMIN TAB PO SCH (08:16)
[2017-12-26] MEDS: INSULIN ASPART 100 UNITS/ML 3 ML PEN SC SCH (08:20)
--- NOTE | 2017-12-26 08:42 | Orthopedic Progress Note ---
Orthopedic Progress Note Date of Service December 26, 2017. Subjective Post OP Day: 2 Reports: feeling well, pain controlled w PO medications, Denies: complaints, chest pain, SOB, nausea / vomiting, light headedness, calf pain Objective calves soft nontender, N/V intact, capillary refill less than 2 sec., dressing C /D/I, A&O x3 Prevena in tact. Date Time Temp Pulse Resp B/P (MAP) Pulse Ox O2 Delivery O2 Flow Rate FiO2 12/26/17 07:15 37.3 73 15 109/65 (80) 93 Room Air 12/25/17 23:44 CPAP 12/25/17 23:00 37.1 87 18 124/69 (87) 94 Room Air 12/25/17 15:30 91 Room Air 12/25/17 15:13 37.2 86 18 127/70 (89) 91 Room Air 12/25/17 11:13 36.8 84 18 119/69 (86) 96 Room Air Laboratory Results 24 Hours: Test 12/26/17 07:06 Hematocrit 28.2 % Hemoglobin 9.4 g/dL Assessment & Plan Assessment: POD#2 SP RIGHT TKA Plan: PT/OT DVT PROPH- XARELTO PAIN MANAGEMENT- SONA, TYLENOL. CANNOT TAKE NSAIDS. TRAMADOL ORDERED BUT SHE HASN'T HAD ANY TODAY DC PLANNING- DC HOME WITH HOME HEALTH TODAY.
[2017-12-26] MEDS ORDERED: ACET-24 PO (08:44)
[2017-12-26] MEDS ORDERED: RXC5 PO (08:44)
[2017-12-26] MEDS ORDERED: XRL10 PO (08:44)
--- NOTE | 2017-12-26 08:46 | Discharge Instructions ---
Discharge Instructions Date of Service December 26, 2017. Admission Reason for Admission: Right Knee Osteoarthritis Discharge Discharge Diagnosis / Problem: RIGHT TKA Discharge Goals Goal(s): Improve function Activity Recommendations Activity Limitations: as noted below . Instructions / Follow-Up Instructions / Follow-Up ACTIVITY RECOMMENDATIONS: SELF CARE INSTRUCTIONS AFTER TOTAL KNEE REPLACEMENT A. You may need to continue a physical therapy program after discharge from the hospital. There are several options available to you. Your doctor will assist you in selecting the best one for you. 1. An out-patient facility 2 to 3 times a week for therapy or home therapy. 2. Continue working on all exercises taught to you in the hospital. Your goals should be to increase bending of your knee to 90 degrees and beyond and to fully straighten your knee. B. You may progress at your own pace from walking with a walker or crutches to a cane; then to no assistive devices. C. Make walking a part of your daily routine. Be up as much as comfortable with rest periods throughout the day. Rest with leg elevation is very important. Use the ice wrap frequently for the first 3-4 weeks. D. There are no restrictions on activities. You may ride in a car, shop, participate in hospital medical assistant and all social activities. E. Wear the long elastic stockings (VEDA hose) 20 hours a day for 2 weeks after surgery. They can be removed several times a day for laundering and for a bath. F. You may shower, no tub baths until cleared by your doctor. SPECIAL CARE INSTRUCTIONS: VERY IMPORTANT TO READ AND REVIEW A. There are a few signs you need to watch for after you are home. Call [facility] if you notice any of the followin. Increased severe knee pain. Some pain is expected especially when you exercise. 2. Increased swelling in your leg or knee; pain or swelling of the calf muscle in either lower leg. 3. Any fluid drainage from the incision. 4. Shortness of breath or chest pain. B. Please call [facility] at if you have any concerns or questions about your operation or recovery. The doctor or his nurse will return your call promptly. C. You must take antibiotics before dental work, bladder, bowel or other surgery. Your doctor will provide you with a permanent care to carry describing this precaution. IMPORTANT: * REMEMBER TO TAKE ASPIRIN, 81 MG, TWICE DAILY FOR 4 WEEKS UNLESS OTHERWISE DIRECTED. THIS IS YOUR BLOOD THINNER. * HIGH RISK PATIENTS MAY BE PRESCRIBED A STRONGER BLOOD THINNER. THIS WILL BE PROVIDED AT DISCHARGE. * CALL IF INCREASED PAIN, REDNESS, DRAINAGE OR FEVER GREATER THAT 101. * WEAR VEDA HOSE 20 HOURS PER DAY FOR 2 WEEKS. * YOU MAY HAVE A LARGE BAND-AID LIKE DRESSING (SILVERON). THIS WILL REMAIN ON YOUR INCISION FOR 7 DAYS, THEN CAN BE REMOVED. IF INCISION IS LEAKING THROUGH DRESSING, CALL THE OFFICE . FOLLOW UP VISIT: If appointment is not already scheduled: Please call [facility] to make a follow-up appointment for 2 weeks after your surgery at . YOU HAVE A WOUND VAC OVER YOUR INCISION, REMOVE AND DISCARD ALL PARTS 1 WEEK AFTER SURGERY AND REPLACE WITH DAILY DRESSING CHANGES UNTIL FOLLOW UP IN THE OFFICE. Current Hospital Diet Patient's current hospital diet: Diabetes Type 2 Diet Discharge Diet Recommended Diet: Diabetes Type 2 Diet Procedures Procedures Performed: Right Total Knee Arthroplasty, Cemented,increased difficulty morbid obesity,superficial wound vac application Pending Studies Studies pending at discharge: no Laboratory Results Hemoglobin A1c Test 12/18/17 14:55 Range/Units Estimated Average Glucose 146 mg/dl Hemoglobin A1c 6.7 H 4.5-5.6 % Medical Emergencies . Who to Call and When: Medical Emergencies: If at any time you feel your situation is an emergency, please call 911 immediately. . Non-Emergent Contact Non-Emergency issues call your: Primary Care Provider . "Provider Documentation" section prepared by Devon Michel. .
[2017-12-26 11:03] VITALS: BP 109/65; PULSE 73; TEMP 37.3; O2SAT 93
[2017-12-26] MEDS: MoRPHine SULFATE 4 MG/ML 1 ML CARP\\VIAL IV PRN (11:31)
== END 2017-12-26 11:45 | disposition home health service (06) | DRG 470 ==
LOC: C.ACU 04:53 → C.MSW 06:02 → ENRESERV 10:04
PROVIDERS: ADMIT Orthopaedic Surgery Sports Medicine; ATTEND Orthopaedic Surgery Sports Medicine
PROC: 0SRC0J9 Replacement of Right Knee Joint with Synthetic Substitute, Cemented, Open Approach (ICD-10-PCS; principal; 2017-12-24 07:00)
DX: M17.11 Unilateral primary osteoarthritis, right knee (principal); Z68.42 Body mass index [BMI] 45.0-49.9, adult; E11.42 Type 2 diabetes mellitus with diabetic polyneuropathy; I10 Essential (primary) hypertension; E78.00 Pure hypercholesterolemia, unspecified; G47.33 Obstructive sleep apnea (adult) (pediatric); E03.9 Hypothyroidism, unspecified; M54.41 Lumbago with sciatica, right side; E66.01 Morbid (severe) obesity due to excess calories; Z79.82 Long term (current) use of aspirin; Z79.84 Long term (current) use of oral hypoglycemic drugs; Z79.899 Other long term (current) drug therapy; Z88.6 Allergy status to analgesic agent; Z82.0 Family history of epilepsy and other diseases of the nervous system; Z80.1 Family history of malignant neoplasm of trachea, bronchus and lung; Z82.49 Family history of ischemic heart disease and other diseases of the circulatory system